=== PATIENT | female | born 2000 | race Asian ===

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

== ENCOUNTER 2019-04-19 23:07 | Emergency (ER) | payer OTHER | END 2019-04-19 23:34 | disposition home or self-care (01) | LOC: FER 23:07 ==

== ENCOUNTER 2019-07-17 16:50 | Emergency (ER) | payer OTHER ==
[2019-07-17 17:03] VITALS: BP 116/66; PULSE 86; TEMP 98.4; BMI 26.6
--- NOTE | 2019-07-17 17:25 | PDOC ---
History of Present Illness - General Chief Complaint: Sore Throat Stated Complaint: SORE THROAT, HOARSENESS Time Seen by Provider: 07/17/19 17:02 - History of Present Illness Initial Comments: 07/17/19 17:20 18f with no pmh presents to the ED with sore throat and hoarseness for the past 3 days. She states that she didn't try taking any medicine except for vicks vaporub. Denies fever, chills, cough chest pain. admits that the patient has been yelling a lot recently. Past History - Past Medical History Allergies/Adverse Reactions: Allergies Allergy/AdvReac Type Severity Reaction Status Date / Time No Known Allergies Allergy Verified 07/17/19 16:52 Home Medications: Ambulatory Orders NK [No Known Home Medication] 07/17/19 Anemia: No Asthma: No Cancer: No Cardiac Disorders: No CVA: No COPD: No CHF: No Dementia: No Diabetes: No GI Disorders: No Disorders: No HTN: No Hypercholesterolemia: No Liver Disease: No Seizures: No Thyroid Disease: No Other medical history: pt denies - Psycho Social/Smoking Cessation Hx Smoking History: Never smoked Have you smoked in the past 12 months: No Information on smoking cessation initiated: No Hx Alcohol Use: No Drug/Substance Use Hx: No Substance Use Type: None Hx Substance Use Treatment: No Review of Systems - Review of Systems Able to Perform ROS?: Yes Is the patient limited Estonian proficient: No Constitutional: No: Symptoms Reported HEENTM: Yes: See HPI Respiratory: No: Symptoms reported Cardiac (ROS): No: Symptoms Reported ABD/GI: No: Symptoms Reported : No: Symptoms Reported Musculoskeletal: No: Symptoms Reported Integumentary: No: Symptoms Reported Neurological: No: Symptoms reported All Other Systems: Reviewed and Negative *Physical Exam - Vital Signs Last Vital Signs Temp Pulse Resp BP Pulse Ox 98.4 F 86 18 116/66 99 07/17/19 16:50 07/17/19 16:50 07/17/19 16:50 07/17/19 16:50 07/17/19 16:50 - Physical Exam General Appearance: Yes: Nourished, Appropriately Dressed. No: Apparent Distress HEENT: positive: EOMI, SHAYAN, Normal ENT Inspection, Pharynx Normal, Muffled/ Hoarse voice, Other (No abscess or edema of the mucosa. ). negative: Normal Voice, Pharyngeal Erythema, Tonsillar Exudate, Tonsillar Erythema, Excessive drooling, Thrush Respiratory/Chest: positive: Lungs Clear, Normal Breath Sounds. negative: Chest Tender, Respiratory Distress Cardiovascular: positive: Regular Rhythm, Regular Rate, S1, S2 Gastrointestinal/Abdominal: positive: Normal Bowel Sounds, Flat, Soft. negative : Tender Extremity: positive: Normal Capillary Refill, Normal Inspection, Normal Range of Motion Integumentary: positive: Normal Color, Dry, Warm Neurologic: positive: Fully Oriented, Alert, Normal Mood/Affect, Normal Response , Motor Strength 01/09 Medical Decision Making - Medical Decision Making 07/17/19 17:43 18f with sore throat and hoarseness. No lymphadenopathy, fever, exudates. Patient has likely viral pharyngitis. Advised trying hot tea with honey and motrin for pain. Avoiding to use her voice too much in the meantime. Discharge - Discharge Information Problems reviewed: Yes Clinical Impression/Diagnosis: Viral pharyngitis Condition: Stable Disposition: HOME - Admission No - Follow up/Referral Referrals: Alvin Cam MD [Primary Care Provider] - - Patient Discharge Instructions Patient Printed Discharge Instructions: DI for Viral Pharyngitis Additional Instructions: Follow up with your primary care physician in 3-4 days. Come back for any new, worsening or concerning symptoms like fever, chills or difficulty swallowing or breathing. . Drink plenty of fluid, hot tea with honey. Take Motrin for pain, 400mg every 4-6h as needed. - Post Discharge Activity
--- NOTE | 2019-07-17 18:04 | PDOC ---
Attending Attestation - Resident Resident Name: JhonatanRusty - ED Attending Attestation I have performed the following: I have examined & evaluated the patient, The case was reviewed & discussed with the resident, I agree w/resident's findings & plan, Exceptions are as noted - HPI HPI: 07/17/19 17:58 18-year-old female with no significant past medical history, surgical history of tonsillectomy presents to the emergency department with 3 days of sore throat , non productive cough, and losing her voice since this morning. Denies any fevers or chills. Reports some mild nasal congestion. Denies any sick contacts. No treatments have been tried other than vicks vapor rub. No recent travel. Is not having any difficulty swallowing. Denies any throat closing sensation. Denies any headaches, dizziness, stiff neck, chest pain, shortness of breath, abdominal pain, nausea, vomiting, diarrhea, urinary symptoms, lower extremity edema. States her period is due in 3 days and there is no chance that she is . - Physicial Exam PE: 07/17/19 18:01 GENERAL: Awake, alert, and fully oriented, in no acute distress EYES: PERRLA, EOMI, sclera anicteric, conjunctiva clear ENT: Auricles normal inspection, hearing grossly normal, nares patent, oropharynx clear without exudates, mild posterior OP erythema. No tonsillar swelling, exudates.Uvula midline. Moist mucosa. +hoarse voice but able to phonate. Tolerating secretions, able to tolerate PO w/o difficulty. NECK: Normal ROM, supple, +R tender anterior cervical mobile LAD, no JVD. LUNGS: Breath sounds equal, clear to auscultation bilaterally. No wheezes, and no crackles HEART: Regular rate and rhythm, normal S1 and S2, no murmurs, rubs or gallops ABDOMEN: Soft, nontender, normoactive bowel sounds. No guarding, no rebound. No masses EXTREMITIES: Normal range of motion, no edema. No cords, erythema, or tenderness NEUROLOGICAL: Normal speech, cranial nerves intact, equal strength and sensation b/l SKIN: Warm, Dry, normal turgor, no rashes or lesions noted. - Medical Decision Making 07/17/19 18:02 18-year-old female presents to the emergency department with sore throat, cough , and loss of phonation. Vitals wnl Pt is well appearing and non toxic. Tolerating secretions, with only mild OP erythema. 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 I answered all of the patient's questions. The patient was satisfied with the care received and felt comfortable with the discharge plan and treatment plan. The patient will call their primary care physician within 24 hours to arrange follow-up and will return to the Emergency Department with any new, persistent or worsening symptoms. Discharge - Discharge Information Problems reviewed: Yes Clinical Impression/Diagnosis: Viral pharyngitis, Cough, Loss of voice Condition: Stable Disposition: HOME - Admission No - Follow up/Referral Referrals: Alvin Cam MD [Primary Care Provider] - - Patient Discharge Instructions Patient Printed Discharge Instructions: DI for Viral Pharyngitis Additional Instructions: Follow up with your primary care physician in 3-4 days. Come back for any new, worsening or concerning symptoms like fever, chills or difficulty swallowing or breathing. Drink plenty of fluid, hot tea with honey. Take Motrin for pain, 400mg every 4-6h as needed. You may also take tylenol for your pain, follow the instructions on the label. - Post Discharge Activity
== END 2019-07-17 18:05 | disposition home or self-care (01) ==
LOC: FER 16:50
DX: J02.8 Acute pharyngitis due to other specified organisms (principal)
CPT/HCPCS: 99282-25

== ENCOUNTER 2021-06-09 02:52 | Emergency (ER) | payer OTHER ==
[2021-06-09] MEDS ORDERED: LIDOCAINE 5% TOPICAL PATCH TP ONE (03:22)
[2021-06-09] MEDS ORDERED: NAPROXEN 500 MG TABLET PO ONE (03:22)
[2021-06-09] MEDS ORDERED: LIDOCAINE 5% TOPICAL PATCH ONE (03:24)
[2021-06-09] MEDS ORDERED: NAPROXEN 500 MG TABLET ONE (03:24)
[2021-06-09 03:30] VITALS: BP 117/80; PULSE 83; TEMP 98.2; BMI 26.6
[2021-06-09] MEDS ORDERED: LIDOCAINE PATCH REMOVAL MC SCH (22:00)
== END 2021-06-09 04:05 | disposition home or self-care (01) ==
LOC: MERGE 02:52 → FER 02:52
DX: M54.2 Cervicalgia (principal); V49.50XA Passenger injured in collision with unspecified motor vehicles in traffic accident, initial encounter
CPT/HCPCS: 99283-25